=== PATIENT | male | born 1950 | race Caucasian/White ===

== ENCOUNTER 2018-07-21 08:38 | Day surgery (SDC) ==
[2018-07-21] MEDS ORDERED: AK-DILATE 10% OPTH SOL OP ONE (09:38)
[2018-07-21] MEDS: TETRACAINE 0.5% UNIT-DOSE OP PRN ×2 (09:38→10:05)
[2018-07-21] MEDS: BETADINE OPTH PREP OP PRN ×2 (09:38→10:05)
[2018-07-21] MEDS: CYCLOGYL 2% OPTH OP PRN ×2 (09:39→09:44)
[2018-07-21] MEDS ORDERED: DEX-MOXI-KETOR OPTH INJ 1/0.5/0.4 MG/ML IO ONE (09:43)
[2018-07-21] MEDS ORDERED: BRIMONIDINE TARTRATE 0.2% OPTH SOL OP PRN (09:43)
[2018-07-21] MEDS ORDERED: LIDOCAINE 1%/PHENYLEPHRINE 1.5% BSS (SURGERY) INTRAOCULA ONE (09:43)
[2018-07-21] MEDS ORDERED: BSS WITH EPINEPHRINE OP ONE (09:43)
[2018-07-21] MEDS ORDERED: ZOFRAN 4 MG/2 ML IVP ONE (09:43)
[2018-07-21] MEDS ORDERED: LIDOCAINE 1% 20 ML MDV ID STA (09:44)
[2018-07-21 09:55] VITALS: TEMP 97.6
[2018-07-21] MEDS ORDERED: SUBLIMAZE ONE (10:11)
[2018-07-21] MEDS ORDERED: ZOFRAN 4 MG/2 ML ONE (10:11)
[2018-07-21] MEDS ORDERED: VERSED ONE (10:11)
[2018-07-22 12:37] VITALS: BP 132/57
== END 2018-07-21 11:15 | disposition home or self-care (01) ==
LOC: SURG 08:38
PROVIDERS: ATTEND Ophthalmology
DX: H25.811 Combined forms of age-related cataract, right eye (principal)